=== PATIENT | female | born 1990 | race Caucasian/White ===

== ENCOUNTER 2016-06-07 12:26 | Emergency (ER) | payer OTHER ==
[2016-06-07 12:36] VITALS: BP 101/53; PULSE 95; TEMP 98.8; BMI 31.8
[2016-06-07] MEDS ORDERED: SODIUM CHLORIDE 1,000 ML IV STA (15:07)
[2016-06-07] MEDS ORDERED: ACETAMINOPHEN INJECTION 100 ML IVPB ONE (15:10)
--- NOTE | 2016-06-07 15:16 | PDOC ---
History of Present Illness - General Chief Complaint: Pain Stated Complaint: PAIN Time Seen by Provider: 06/07/16 14:41 History Source: Patient Exam Limitations: No Limitations - History of Present Illness Initial Comments: 06/07/16 15:10 26 yr female with sudden onset 5am body aches . no fever, pt feels chills. Pt LMP 01/31/16 followed by [facility] at [facility]. Pt states not high risk . . Pt denies abd pain no vaginal discharge or bleeding. Pt did not have the flu shot. Timing/Duration: 4-6 hours Severity: mild Associated Symptoms: reports: fever/chills Past History - Past Medical History Allergies/Adverse Reactions: Allergies Allergy/AdvReac Type Severity Reaction Status Date / Time No Known Allergies Allergy Verified 06/07/16 12:32 Home Medications: Ambulatory Orders Acetaminophen [Tylenol] 650 mg PO Q6H PRN #18 tablet 03/11/16 Doxylamine/Pyridoxine HCl [Diclegis Dr 10-10 mg Tablet] 1 each PO TID #20 tablet. 04/16/16 Other medical history: denies - Family Disease History Comment:: 06/07/16 15:16 none - Reproductive History (#): 3 Para: 2 Spontaneous : 0 - Psycho/Social/Smoking Cessation Hx Anxiety: No Suicidal Ideation: No Smoking History: Never smoked Have you smoked in the past 12 months: No Information on smoking cessation initiated: No Hx Alcohol Use: No Drug/Substance Use Hx: No Substance Use Type: None Review of Systems - Review of Systems Able to Perform ROS?: Yes Is the patient limited Swedish proficient: Yes Constitutional: Yes: See HPI, Chills, Malaise HEENTM: No: Symptoms Reported Respiratory: No: Cough Cardiac (ROS): Yes: Chest Pain ABD/GI: No: Symptoms Reported : No: Symptoms Reported Musculoskeletal: Yes: See HPI Integumentary: No: Symptoms Reported Neurological: No: Symptoms reported *Physical Exam - Vital Signs Last Vital Signs Temp Pulse Resp BP Pulse Ox 98.8 F 95 H 20 101/53 99 06/07/16 12:34 06/07/16 12:34 06/07/16 12:34 06/07/16 12:34 06/07/16 12:34 - Physical Exam General Appearance: Yes: Nourished, Appropriately Dressed HEENT: positive: EOMI, SHANTE, Normal ENT Inspection, TMs Normal, Pharynx Normal Neck: positive: Supple. negative: Lymphadenopathy (R), Lymphadenopathy (L) Respiratory/Chest: positive: Chest Tender (midsternal tenderness on palpation , no rash ), Lungs Clear, Normal Breath Sounds ED Treatment Course - LABORATORY CBC & Chemistry Diagram: 06/07/16 16:20 06/07/16 16:20 Medical Decision Making - Medical Decision Making 06/07/16 15:21 cc: body aches and pains started at 5am pt did not get the flu shot denies abd pain, states "everything hurts" will check flu swab, UA normal saline x 1 bolus, IV tylenol 06/07/16 17:14 pt refused the IVtyelnol will give po tylenol. pt eating and drinking , given juice and lunch tray. 06/07/16 18:10 pt eating and drinking feels better after fluids and tylenol follow up with [facility] Friday . 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 06/07/16 18:19 *DC/Admit/Observation/Transfer Diagnosis at time of Disposition: Viral syndrome - Discharge Dispostion Disposition: HOME Condition at time of disposition: Improved - Referrals Referrals: Yoni Malone [Primary Care Provider] - - Patient Instructions Additional Instructions: follow with your doctor on FRIDAY for follow up exam, this is very important stay at home and drink pleanty of fluids get your flu vaccine from your doctor or your assistant store leader return to ER for any worsening symptoms
[2016-06-07] MEDS: ACETAMINOPHEN 1000 MG/100 ML VIAL (NON FORMULARY) IVPB ONE ×2 (15:53→17:19)
[2016-06-07 16:37] LABS: BASOPHIL 0.3 % (0-2.0); EOSINOPHIL 1.7 % (0-4.5); MCH 30.5 pg (25.7-33.7); MCHC 33.1 g/dl (32.0-36.0); MEAN CELL VOLUME 92.1 fl (80-96); MEAN PLT VOLUME 10.1 fl (7.5-11.1); NEUTROPHILS 65.4 % (42.8-82.8); PLATELET COUNT 212 K/MM3 (134-434); RDW 13.6 % (11.6-15.6); WHITE BLOOD COUNT 7.4 K/mm3 (4.0-10.0)
[2016-06-07] MEDS ORDERED: ACETAMINOPHEN 500 MG TABLET (FP) ONE (17:13)
[2016-06-07] MEDS ORDERED: ACETAMINOPHEN 500 MG TABLET (FP) PO ONE (17:13)
[2016-06-07 17:38] LABS: ALBUMIN 3.5 g/dl (3.4-5.0); ANION GAP 14 (8-16); BILIRUBIN,TOTAL 0.3 mg/dL (0.2-1.0); CALCIUM 8.7 mg/dL (8.5-10.1); CO2 23 mmol/L (21-32); CREATININE 0.6 mg/dL (0.55-1.02); GLUCOSE,RANDOM 72 mg/dL (74-106); SGOT/AST 22 U/L (15-37); SGPT/ALT 25 U/L (12-78); TOT PROT 7.2 g/dl (6.4-8.2)
[2016-06-07 17:39] LABS: ALK PHOS 57 U/L (45-117)
[2016-06-07 18:48] LABS: URINE APPEARANCE CLEAR; URINE BILIRUBIN NEGATIVE (NEGATIVE); URINE BLOOD NEGATIVE (NEGATIVE); URINE COLOR STRAW; URINE GLUCOSE (UA) NEGATIVE (NEGATIVE); URINE KETONE NEGATIVE (NEGATIVE); URINE LEUK ESTERASE 1+ (NEGATIVE); URINE NITRITE NEGATIVE (NEGATIVE); URINE PROTEIN NEGATIVE (NEGATIVE); URINE UROBILINOGEN NEGATIVE E.U./dl (0.2-1.0)
[2016-06-07 18:50] LABS: URINE BACTERIA MODERATE /hpf (NONE SEEN); URINE MUCUS RARE; URINE RBC 2 /hpf (0-3); URINE WBC 11 /hpf (3-5)
== END 2016-06-07 19:02 | disposition home or self-care (01) ==
LOC: JERFT 12:26
PROC: 3E0337Z Introduction of Electrolytic and Water Balance Substance into Peripheral Vein, Percutaneous Approach (ICD-10-PCS; principal; 2016-06-07)
DX: O98.512 Other viral diseases complicating pregnancy, second trimester (principal); Z3A.00 Weeks of gestation of pregnancy not specified
CPT/HCPCS: 36415; 76815; 80053; 81003; 81015; 84703; 85025; 87804; 96360; 99281-25